=== PATIENT | male | born 1965 | race American Indian/Alaskan Native ===

== ENCOUNTER 2016-08-11 13:20 | Outpatient (CLI) | payer OTHER ==
--- NOTE | 2016-08-12 07:42 | Ultrasound Report ---
ULTRASOUND RENAL BILATERAL HISTORY: Right flank pain. TECHNIQUE: transabdominal ultrasound with color Doppler interrogation. FINDINGS: The right kidney measures 10.7 x 6.0 x 4.9cm. Right renal cortex: 1.8cm. The left kidney measures 11.5 x 5.0 x 5.0cm. Left renal cortex: 1.2cm. The kidneys are normal size, contour and position. There is increased renal parenchymal echotexture bilaterally. 2 or 3 subcentimeter simple cysts are noted in the right kidney. No evidence for nephrolithiasis, mass, hydronephrosis or perinephric fluid. The bladder appears mildly distended with prevoid bladder volume measuring 494 cc. No bladder wall abnormality or filling defect is identified. Bilateral ureteral jets are identified on Doppler interrogation. IMPRESSION: Renal parenchymal disease. Tiny simple right renal cysts. Mildly distended bladder.
== END 2016-08-11 13:21 | disposition home or self-care (01) ==
LOC: US 13:20
PROVIDERS: ATTEND Internal Medicine Nephrology
DX: N28.1 Cyst of kidney, acquired (principal); N28.9 Disorder of kidney and ureter, unspecified; N32.89 Other specified disorders of bladder
CPT/HCPCS: 76770